=== PATIENT | female | born 1960 | race Caucasian/White ===

== ENCOUNTER 2016-10-22 19:02 | Emergency (ER) | END 2016-10-22 21:09 | disposition home or self-care (01) | DX: M79.605 Pain in left leg (principal); M54.32 Sciatica, left side; Z85.3 Personal history of malignant neoplasm of breast | CPT/HCPCS: Z7502; Z7610 ==

== ENCOUNTER 2017-04-28 00:45 | Emergency (ER) | END 2017-04-28 05:55 | disposition home or self-care (01) ==

== ENCOUNTER 2017-11-01 05:34 | Emergency (ER) | END 2017-11-01 08:26 | disposition home or self-care (01) ==